=== PATIENT | female | born 1980 | race Caucasian/White ===

== ENCOUNTER → 2017-05-29 | Day surgery (SDC) | payer BC ==
[~2017-05-29] MED LIST: APREPITANT 40 MG CAP ONE; IBUP800 PO; KETOROLAC TROMETHAMINE 30 MG/ML (IVP) VIAL IV PUSH ONE; MIDAZOLAM HCL 2 MG/2 ML VIAL ONE; NORC7.5T PO; ONDANSETRON HCL 4 MG/2 ML VIAL IV PUSH ONE; PREN0.01 PO; PROPOFOL 200 MG/20 ML AMP IV ONE; SYNT175T PO; ceFAZolin 2 GM PREMIX 50 ML ONE
--- NOTE | 2017-05-29 21:58 | MP ---
cc: JOIE AN DATE OF SURGERY 05/29/17 PREOPERATIVE DIAGNOSIS Patient with menorrhagia. PROCEDURE Exam under anesthesia, dilatation and curettage, endometrial ablation with Novasure device. POSTOPERATIVE DIAGNOSIS Patient with Menorrhagia SURGEON Morena An MD ANESTHESIA General LMA ESTIMATED BLOOD LOSS Less than 50 mL. DRAINS None OPERATIVE FINDINGS The patient had symmetrical cavity, thick endometrial layer that was symmetrical and homogeneous. There was no deformity, perforation or space-occupying lesion. INDICATIONS FOR PROCEDURE Patient with chronic heavy menstrual bleeding not responsive to the use of oral contraceptives. The patient was consented for hysteroscopy with endometrial ablation. Preoperatively, the patient received Ancef 2 grams prophylactically. DESCRIPTION OF PROCEDURE The patient was taken to the operating room in stable condition, underwent general anesthesia with LMA placement. She was carefully positioned in dorsolithotomy position using candy-cane stirrups on the lower extremities. She had sequentials placed previously for VTE prophylaxis. She was prepped and draped. Time-out was conducted and agreed by all present in the room. Examination of the patient revealed preoperative findings of normal midline uterus measuring about 8 weeks size. Dimensions measured were 9 cm in length and 3.8 cm in width. Surgical specimens included endometrial curettings only. After time-out was conducted, examination of the cervix was accomplished by use of the bivalve retractor. A single-tooth tenaculum is used to secure the cervix and then a uterine sound was placed gently in anteverted position to 9 cm. The cervix was dilated to accommodate a 5 mm rigid hysteroscope. Using normal saline as a distension media, the cavity was examined. Findings were described above. After completion of the hysteroscopy, curettage of the endometrium was accomplished without difficulty. The Novasure device was then utilized and placement was secured. Electro-desiccation was complete. Measurement on the generator was 124 levine. After completion of the Novasure ablation, reinsertion of the scope revealed a normal desiccated cavity without difficulty. No bleeding. No perforation. At the completion of the case, final counts were correct. The patient was stable. She was taken to recovery room on room air. MD LUPE Hammer/ /8:53 AM 9:47 PM
== END | disposition home or self-care (01) ==
LOC: ESDC 07:28
PROVIDERS: ATTEND Obstetrics & Gynecology
DX: N92.0 Excessive and frequent menstruation with regular cycle (principal)
CPT/HCPCS: 00952; 58563; 88305; J0690; J1885; J2250; J2405; J3010; J8501